=== PATIENT | male | born 1940 | race Hispanic/Latino ===

== ENCOUNTER → 2020-10-10 | Outpatient (CLI) | payer MEDICARE | END | disposition home or self-care (01) | LOC: RAH 09:28 | PROVIDERS: ATTEND Internal Medicine | DX: R74.8 Abnormal levels of other serum enzymes (principal) | CPT/HCPCS: 76770 ==

== ENCOUNTER 2022-03-16 10:02 | Emergency (ER) | payer MEDICARE, OTHER ==
[~2022-03-16] VITALS: Ht 180.3 cm; Wt 82.6 kg
[2022-03-16 10:07] VITALS: BP 158/74
[2022-03-16] MEDS ORDERED: TAMSULOSIN HCL 0.4 MG CAP.ER.24H PO STA (10:33)
[2022-03-16] MEDS ORDERED: PHENAZOPYRIDINE HCL 200 MG TABLET PO ONE (11:00)
[2022-03-16 11:06] LABS: APPEARANCE,URINE CLOUDY (CLEAR); BILIRUBIN,URINE NEGATIVE (NEGATIVE); COLOR,URINE YELLOW (YELLOW); GLUCOSE, URINE (UA) NEGATIVE (NEGATIVE); KETONES,URINE NEGATIVE (NEGATIVE); LEUKOCYTE ESTERASE ,URINE 500 Leu/uL (NEGATIVE); NITRATE,URINE 2+ (NEGATIVE); OCCULT BLOOD,URINE LARGE (NEGATIVE); PH,URINE 5.5 (5.0-8.0); PROTEIN,URINE 100 mg/dL (NEGATIVE); UROBILINOGEN,URINE 0.2 mg/dL (0.2-1.0)
[2022-03-16 11:13] LABS: BACTERIA,URINE MOD /HPF (None Seen); MUCUS,URINE RARE LPF (None Seen); WBC,URINE TNTC /HPF (0-1)
[2022-03-16] MEDS ORDERED: PHEN-846 PO (13:41)
[2022-03-16] MEDS ORDERED: LEVO750T68 PO (13:41)
[2022-03-16 14:02] LABS: BASOPHILS % (AUTO) 0.6 % (0.0-5.0); EOSINOPHILS % (AUTO) 1.4 % (0.0-8.0); HEMATOCRIT 39.3 % (42-54); MEAN CORPUSCULAR HEMOGLOBIN 31.5 pg (27.0-33.0); MEAN CORPUSCULAR HGB CONC 34.4 g/dL (32.0-36.0); MEAN CORPUSCULAR VOLUME 91.8 fL (79-99); MONOCYTES % (AUTO) 12.9 % (3.0-13.0); NEUTROPHILS % (AUTO) 69.5 % (40.0-77.0); PLATELET COUNT (AUTO) 213 K/uL (130-400); RED BLOOD CELL COUNT(AUTO) 4.28 MIL/uL (4.50-6.20); RED CELL DISTRIBUTION WIDTH 13.4 % (11.0-15.5); WHITE BLOOD COUNT (AUTO) 7.7 K/uL (4.8-10.8)
[2022-03-16 14:11] LABS: CREATININE 1.5 mg/dL (0.5-1.5)
[2022-03-16 14:16] LABS: ALBUMIN 2.8 g/dL (3.5-5.0); TOTAL PROTEIN, SERUM 6.7 g/dL (6.0-8.3)
== END 2022-03-16 14:36 | disposition home or self-care (01) ==
LOC: EDH 10:02
DX: N30.90 Cystitis, unspecified without hematuria (principal); R33.9 Retention of urine, unspecified; I10 Essential (primary) hypertension; H40.9 Unspecified glaucoma; Z98.890 Other specified postprocedural states
CPT/HCPCS: 36415; 51702; 74176; 80053; 81001; 85025; 87077; 87088; 87186

== ENCOUNTER → 2022-03-19 | Outpatient (CLI) | payer MEDICARE ==
[~2022-03-19] MED LIST: LEVO750T68 PO; PHEN-846 PO
[2022-03-19 13:51] LABS: BASOPHILS % (AUTO) 0.6 % (0.0-5.0); EOSINOPHILS % (AUTO) 2.2 % (0.0-8.0); HEMATOCRIT 40.9 % (42-54); LYMPHOCYTES % (AUTO) 17.3 % (21.0-51.0); MEAN CORPUSCULAR HEMOGLOBIN 31.2 pg (27.0-33.0); MEAN CORPUSCULAR HGB CONC 33.3 g/dL (32.0-36.0); MEAN CORPUSCULAR VOLUME 93.8 fL (79-99); MONOCYTES % (AUTO) 9.8 % (3.0-13.0); NEUTROPHILS % (AUTO) 69.4 % (40.0-77.0); PLATELET COUNT (AUTO) 271 K/uL (130-400); RED BLOOD CELL COUNT(AUTO) 4.36 MIL/uL (4.50-6.20); RED CELL DISTRIBUTION WIDTH 13.2 % (11.0-15.5); WHITE BLOOD COUNT (AUTO) 8.2 K/uL (4.8-10.8)
[2022-03-19 13:59] LABS: CREATININE 1.6 mg/dL (0.5-1.5); POTASSIUM 3.5 mmol/L (3.5-5.1)
== END | disposition home or self-care (01) ==
LOC: LAB 12:59
PROVIDERS: ATTEND Urology
DX: N50.3 Cyst of epididymis (principal); N43.3 Hydrocele, unspecified; N50.811 Right testicular pain; N13.39 Other hydronephrosis
CPT/HCPCS: 36415; 76870; 80048; 85025

== ENCOUNTER → 2022-03-23 | Outpatient (CLI) | payer MEDICARE ==
[~2022-03-23] MED LIST changes: +IOHEXOL 350 MG/ML 100ML INFUS..BTL IV ONE
== END | disposition home or self-care (01) ==
LOC: RAH 09:42
PROVIDERS: ATTEND Urology
DX: K40.90 Unilateral inguinal hernia, without obstruction or gangrene, not specified as recurrent (principal); N50.811 Right testicular pain; N13.39 Other hydronephrosis
CPT/HCPCS: 74178; Q9967

== ENCOUNTER 2023-07-15 12:14 | Emergency (ER) | payer MEDICARE ==
[~2023-07-15] VITALS: Ht 180.3 cm; Wt 81.6 kg
[~2023-07-15 12:14] MED LIST changes: -IOHEXOL 350 MG/ML 100ML INFUS..BTL IV ONE
[2023-07-15 14:31] LABS: BASOPHILS # (AUTO) 0.06 K/uL (0.00-0.20); EOSINOPHILS # (AUTO) 0.64 K/uL (0.00-0.70); EOSINOPHILS % (AUTO) 11.2 % (0.0-8.0); IMMATURE GRANULOCYTE ABSOLUTE 0.01 K/uL (0-1); LYMPHOCYTES # (AUTO) 1.4 K/uL (1.0-4.8); MEAN CORPUSCULAR HEMOGLOBIN 31.9 pg (27.0-33.0); MEAN CORPUSCULAR VOLUME 94.1 fL (79-99); MONOCYTES # (AUTO) 0.7 K/uL (0.1-1.0); MONOCYTES % (AUTO) 11.9 % (3.0-13.0); NEUTROPHILS % (AUTO) 51.7 % (40.0-77.0); PLATELET COUNT (AUTO) 157 K/uL (130-400); RED BLOOD CELL COUNT(AUTO) 4.57 MIL/uL (4.50-6.20); RED CELL DISTRIBUTION WIDTH 14.1 % (11.0-15.5); WHITE BLOOD COUNT (AUTO) 5.7 K/uL (4.8-10.8)
[2023-07-15 14:39] LABS: CREATININE 1.3 mg/dL (0.5-1.3); POTASSIUM 4.1 mmol/L (3.5-5.1)
[2023-07-15 14:40] LABS: APPEARANCE,URINE CLEAR (CLEAR); BILIRUBIN,URINE NEGATIVE (NEGATIVE); COLOR,URINE LIGHT-YELLOW (YELLOW); GLUCOSE, URINE (UA) NEGATIVE (NEGATIVE); KETONES,URINE NEGATIVE (NEGATIVE); LEUKOCYTE ESTERASE ,URINE NEGATIVE Leu/uL (NEGATIVE); NITRATE,URINE NEGATIVE (NEGATIVE); OCCULT BLOOD,URINE NEGATIVE (NEGATIVE); PROTEIN,URINE NEGATIVE (NEGATIVE); UROBILINOGEN,URINE 0.2 mg/dL (0.2-1.0)
[2023-07-15 14:47] LABS: ADD UA MICROSCOPIC NO
[2023-07-15 16:45] VITALS: BP 162/79; PULSE 90; RESP 16; O2SAT 98
== END 2023-07-15 16:47 | disposition home or self-care (01) ==
LOC: EDH 12:14
DX: K40.90 Unilateral inguinal hernia, without obstruction or gangrene, not specified as recurrent (principal); R10.9 Unspecified abdominal pain; I10 Essential (primary) hypertension
CPT/HCPCS: 36415; 74176; 80048; 81003; 85025

== ENCOUNTER 2023-07-20 04:00 | Observation (INO) | payer MEDICARE ==
[2023-07-20] VITALS (24 sets, daily range): BP systolic 107–159; BP diastolic 50–86; PULSE 52–72; RESP 14–19; O2SAT 100
[~2023-07-20] VITALS: Ht 180.3 cm; Wt 83.9 kg
[2023-07-20] MEDS: FAMOTIDINE 20MG VIAL IV ONE (04:58)
[2023-07-20] MEDS: ONDANSETRON 4MG INJ IVP ONE (04:58)
[2023-07-20] MEDS ORDERED: FAMOTIDINE 20MG VIAL IV PRN (05:00)
[2023-07-20] MEDS ORDERED: ONDANSETRON 4MG INJ IV PRN (05:00)
[2023-07-20] MEDS ORDERED: ACETAMINOPHEN 325 MG TAB PO PRN ×2 (05:00)
[2023-07-20 05:06] LABS: BASOPHILS # (AUTO) 0.05 K/uL (0.00-0.20); BASOPHILS % (AUTO) 0.9 % (0.0-5.0); EOSINOPHILS # (AUTO) 0.68 K/uL (0.00-0.70); EOSINOPHILS % (AUTO) 12.3 % (0.0-8.0); HEMATOCRIT 43.3 % (42-54); IMMATURE GRANULOCYTE ABSOLUTE 0.02 K/uL (0-1); LYMPHOCYTES # (AUTO) 1.4 K/uL (1.0-4.8); LYMPHOCYTES % (AUTO) 24.8 % (21.0-51.0); MEAN CORPUSCULAR HEMOGLOBIN 32.1 pg (27.0-33.0); MEAN CORPUSCULAR VOLUME 97.1 fL (79-99); MONOCYTES # (AUTO) 0.7 K/uL (0.1-1.0); MONOCYTES % (AUTO) 11.9 % (3.0-13.0); NEUTROPHILS # (AUTO) 2.8 K/uL (1.8-7.7); NEUTROPHILS % (AUTO) 49.7 % (40.0-77.0); PLATELET COUNT (AUTO) 143 K/uL (130-400); RED BLOOD CELL COUNT(AUTO) 4.46 MIL/uL (4.50-6.20); RED CELL DISTRIBUTION WIDTH 13.7 % (11.0-15.5); WHITE BLOOD COUNT (AUTO) 5.5 K/uL (4.8-10.8)
[2023-07-20 05:11] LABS: CREATININE 1.3 mg/dL (0.5-1.3); POTASSIUM 3.7 mmol/L (3.5-5.1)
[2023-07-20 05:16] LABS: BILIRUBIN,TOTAL 0.6 mg/dL (0.2-1.0); TOTAL PROTEIN, SERUM 6.6 g/dL (6.0-8.3)
[2023-07-20 05:18] LABS: INR <= 0.93 (0.85-1.15); PROTHROMBIN TIME 10.7 SEC (9.6-11.6)
[2023-07-20 05:20] LABS: PARTIAL THROMBOPLASTIN TIME 27.1 SEC (26.3-35.5)
[2023-07-20] MEDS ORDERED: MORPHINE 2 MG SYG IVP PRN (05:30)
[2023-07-20] MEDS: 0.9%NACL 1000ML 1,000 ML IV SCH (06:08)
[2023-07-20] MEDS ORDERED: PROPOFOL 10 MG/ML 20ML VIAL IV ONE (09:18)
[2023-07-20] MEDS ORDERED: FENTANYL CITRATE PF 50 MCG/1 ML 2ML VIAL ONE ×3 (09:18→11:11)
[2023-07-20] MEDS ORDERED: ROCURONIUM BROMIDE 10MG/1ML 5ML VL ONE (09:18)
[2023-07-20] MEDS ORDERED: ONDANSETRON 4MG INJ ONE (09:18)
[2023-07-20] MEDS ORDERED: MIDAZOLAM HCL 1 MG/ML 2ML VIAL ONE (09:18)
[2023-07-20] MEDS ORDERED: CEFAZOLIN SODIUM 2 GM VIAL ONE (09:21)
[2023-07-20] MEDS ORDERED: CEFAZOLIN SODIUM 2 GM VIAL IVPB PRN (09:30)
[2023-07-20] MEDS ORDERED: ROPIVACAINE 0.5% 5MG/ML 30ML ONE (09:31)
[2023-07-20] MEDS ORDERED: PHENYLEPHRINE HCL 10 MG/ML 1ML VIAL IV ONE (09:40)
[2023-07-20] MEDS ORDERED: METH-662 PO (11:10)
[2023-07-20] MEDS ORDERED: DOCU-116 PO (11:10)
[2023-07-20] MEDS ORDERED: TRAM50TA4 PO (11:10)
[2023-07-20] MEDS ORDERED: GABA-529 PO (11:10)
[2023-07-20] MEDS: MEPERIDINE-PF 25 MG/ML SYG ONE (11:44)
[2023-07-20] MEDS ORDERED: TRAMADOL HCL 50 MG TABLET PO PRN (13:30)
[2023-07-20] MEDS ORDERED: GABAPENTIN 100 MG CAPSULE PO SCH (14:00)
[2023-07-20] MEDS ORDERED: METHOCARBAMOL 500 MG TABLET PO SCH (14:00)
[2023-07-20] MEDS ORDERED: DOCUSATE SODIUM 100 MG CAP PO SCH (21:00)
== END 2023-07-20 14:45 | disposition home or self-care (01) ==
LOC: EDH 04:00 → EDHIP 04:57 → INTOOBSV 04:57
PROVIDERS: ADMIT Hospitalist; ATTEND Hospitalist
DX: K40.30 Unilateral inguinal hernia, with obstruction, without gangrene, not specified as recurrent (principal); K57.30 Diverticulosis of large intestine without perforation or abscess without bleeding; K21.9 Gastro-esophageal reflux disease without esophagitis; H40.9 Unspecified glaucoma; I10 Essential (primary) hypertension; G62.9 Polyneuropathy, unspecified; E78.00 Pure hypercholesterolemia, unspecified; G47.00 Insomnia, unspecified; K59.00 Constipation, unspecified; N40.0 Benign prostatic hyperplasia without lower urinary tract symptoms; Z79.899 Other long term (current) drug therapy; Z87.891 Personal history of nicotine dependence
CPT/HCPCS: 49650; 99284; 84484; 80053; 83690; 85025; 85610; 85730; 83605; 36415; 96374; 96375; 93005; 84145; G0378 ×6; A4600; C1781; A4663; J7030 ×2; A4344; J3490 ×2; J3010 ×3; J2250; J2704; J2405 ×2; J2175; J2795; J2371; J0690; C9250; A4649 ×4; A4930 ×3; A4215; A4223; A4213; A4358; A4222; A4221; A4216

== ENCOUNTER → 2024-10-24 | Outpatient (CLI) | payer MEDICARE ==
[~2024-10-24] MED LIST changes: +DOCU-116 PO; +GABA-529 PO; -LEVO750T68 PO; +METH-662 PO; -PHEN-846 PO; +TRAM50TA4 PO
--- NOTE | 2024-10-25 13:24 | HMCIMG ---
EXAMINATION: ULTRASOUND OF THE RETROPERITONEUM. CLINICAL HISTORY: Microscopic hematuria. COMPARISON: None. TECHNIQUE: Real-time grayscale ultrasound images of the kidneys. FINDINGS: The kidneys are normal in caliber, the right kidney measures 8.9 x 4.7 x 3.8 cm and the left kidney measures 9.7 x 4.9 x 4.3 cm in its craniocaudal, AP, and transverse dimensions respectively. There is normal renal cortical thickness, and cortical echogenicity. There is no renal calculus or hydronephrosis. There is a simple cortical cyst that measures 1.9 x 1.7 x 1.4 cm in the left renal upper pole. The urinary bladder is normal in caliber and wall thickness (0.3 cm). There are no calculi in the urinary bladder. Pre-void volume is 328 cc and post-void volume is 14 cc. The prostate gland is normal in caliber and measures 2.9 x 2.6 x 3.6 cm in the craniocaudal, AP, and transverse dimensions respectively with a volume of 14 cc. IMPRESSION: Left renal simple cortical cyst. /[place]
== END | disposition home or self-care (01) ==
LOC: RAH 14:47
PROVIDERS: ATTEND Urology
DX: N28.1 Cyst of kidney, acquired (principal); R31.29 Other microscopic hematuria
CPT/HCPCS: 76770